=== PATIENT | female | born 1995 | race Caucasian/White ===

== ENCOUNTER 2019-02-23 02:40 | Inpatient (IN) ==
[2019-02-23] MEDS ORDERED: MAGNESIUM SULFATE / WTR 4 GM/100 ML BAG IV ONE (03:15)
[2019-02-23] MEDS ORDERED: LACTATED RINGER'S 1,000 ML IV SCH (03:15)
[2019-02-23] MEDS: LACTATED RINGER'S 1,000 ML IV PRN ×3 (03:20→18:45)
[2019-02-23 03:53] LABS: Hematocrit (blood only) 36.4 % (37-47); Hemoglobin 12.6 g/dL (12.0-16.0); Mean Corpuscular Hemoglobin 30.6 pg (25-34); Mean Corpuscular Volume 88.3 fL (80-100); Mean Platelet Volume 9.4 fL (7.4-10.4); Platelet Count 240 K/uL (130-400); RDW Coefficient of Variation 13.6 % (11.5-14.5); RDW Standard Deviation 43.9 fL (36.4-46.3); Red Blood Count 4.12 M/uL (4.2-5.4); White Blood Count 9.18 K/uL (4.8-10.8)
[2019-02-23 04:04] LABS: Mean Corpuscular Hgb Conc 34.6 g/dL (32-36)
[2019-02-23 04:11] LABS: Albumin Level 2.7 gm/dl (3.4-5.0); BUN Creatinine Ratio 15.4 (10-20); Calcium 9.4 mg/dl (8.5-10.1); Creatinine Clr Calc Pharmacy 151.7 ml/min; Est GFR (Non-African American) 129.4; Potassium 3.6 mmol/L (3.5-5.1)
[2019-02-23 04:14] LABS: Albumin Globulin Ratio 0.6 (0.9-2); Bilirubin,Total 0.2 mg/dl (0.2-1); Globulin 4.3 gm/dl (2.5-4.0)
--- NOTE | 2019-02-23 04:14 | History and Physical Report ---
DATE OF ADMISSION: 02/23/2019 CHIEF COMPLAINT: Ruptured membranes, intrauterine 38 weeks 4 days, elevated blood pressure. HISTORY OF PRESENT ILLNESS: The patient is a 23-year-old 1, para 0. has been well dated. Her due date is 03/07/2019. She has had elevated blood pressure since 35 weeks. It has been fairly stable in the office. She has been on Procardia at night. She ruptured her membranes at 2:10 a.m. the day of admission. Came into the hospital and was running blood pressures of 170/112 with 2+ protein. ALLERGIES: No known drug allergies. PAST SURGICAL HISTORY: No previous surgery. PAST MEDICAL HISTORY: No history of rheumatic fever, heart disease, or heart murmur. SOCIAL HISTORY: No smoking. No excessive alcohol intake. Works at [employer]. FAMILY HISTORY: Mom is 54 in good health, father 52 in good health, 2 brothers and 2 sisters in good health. REVIEW OF SYSTEMS: She has occasional headaches. PHYSICAL EXAMINATION: GENERAL: Well-developed, well-nourished, 23-year-old white female, alert, oriented x3 and cooperative, in no acute distress. EYES: Conjunctivae are pink. Sclerae white, no evidence of jaundice. EARS: Had a normal light reflex. HEART: Had regular rhythm. S1, S2 are normal. LUNGS: Clear to auscultation and percussion. ABDOMEN: Consistent with 38 weeks' gestational fetus. No CVA tenderness. PELVIC: Vertex presentation, posterior, 80% effaced, 2 cm, prem rupture of membranes. MUSCULOSKELETAL: No calf tenderness. IMPRESSIONS OF THIS CASE: Intrauterine 38 weeks 4 days, prem rupture of membranes, toxemia of .
[2019-02-23] MEDS: MAGNESIUM SULFATE / WTR 40 GM/1,000 ML BAG IV SCH ×2 (04:23→19:01)
[2019-02-23] MEDS ORDERED: ONDANSETRON INJ 2 MG/ML 2 ML VIAL IV PRN ×2 (06:17→11:41)
[2019-02-23] MEDS ORDERED: BUTORPHANOL TARTRATE 1 MG/ML VIAL IV PRN ×2 (06:26→08:44)
[2019-02-23] MEDS ORDERED: BUTORPHANOL TARTRATE 1 MG/ML VIAL ONE (06:37)
[2019-02-23] MEDS ORDERED: OXYTOCIN 30 UNITS/500 ML BAG IV PRN ×2 (08:09→22:36)
--- NOTE | 2019-02-23 08:09 | Obstetrical Progress Note ---
Date of Service February 23, 2019 Subjective doing well with labor pain now with Stadol Physical Exam Constitutional: WD/WN, vitals as above comfortable Genitourinary: OB Exam Abdomen: + vertex Manual OB Exam: + cervical dilation 2 cm, + cervical effacement 80%, + station high and + amniotic fluid clear OB Exam Monitor Tracing: + external FHT monitor used and + external uterine monitor used Will start oxytocin to augment contractions EFW 8 lbs. Results & Data Vital Signs (Past 12 Hours) Vital Signs Temp Pulse Resp BP Pulse Ox 02/23/19 08:02 101 H 97 02/23/19 07:57 122 H 99 02/23/19 07:55 110 H 142/86 H 02/23/19 07:52 117 H 100 02/23/19 07:47 99 H 98 02/23/19 07:42 101 H 97 02/23/19 07:37 109 H 98 02/23/19 07:34 105 H 140/85 02/23/19 07:32 111 H 98 02/23/19 07:27 106 H 96 02/23/19 07:22 113 H 97 02/23/19 07:17 117 H 98 02/23/19 07:14 104 H 142/89 H 02/23/19 07:12 112 H 97 02/23/19 07:07 119 H 97 02/23/19 07:03 36.7 C 18 98 02/23/19 07:02 111 H 99 02/23/19 07:00 18 02/23/19 06:57 116 H 98 02/23/19 06:54 111 H 162/106 H 02/23/19 06:52 120 H 98 02/23/19 06:47 108 H 98 02/23/19 06:42 109 H 99 02/23/19 06:37 107 H 99 02/23/19 06:33 104 H 158/100 H 02/23/19 06:32 110 H 99 02/23/19 06:27 139 H 100 02/23/19 06:22 103 H 98 02/23/19 06:17 102 H 99 02/23/19 06:12 100 H 100 02/23/19 06:07 120 H 99 02/23/19 06:04 98 H 94 02/23/19 06:03 87 156/87 H 02/23/19 06:02 91 H 97 02/23/19 06:00 18 02/23/19 05:54 98 H 149/89 H 02/23/19 05:50 18 02/23/19 05:46 107 H 155/92 H 02/23/19 05:30 36.7 C 02/23/19 05:24 104 H 151/99 H 02/23/19 05:14 101 H 159/105 H 02/23/19 05:04 100 H 151/88 H 02/23/19 04:54 103 H 150/89 H 02/23/19 04:50 18 02/23/19 04:44 112 H 189/92 H 02/23/19 04:35 18 02/23/19 04:34 114 H 190/89 H 02/23/19 04:20 18 02/23/19 04:09 114 H 168/106 H 02/23/19 04:05 18 02/23/19 03:52 103 H 170/112 H 02/23/19 03:50 18 02/23/19 03:48 18 02/23/19 03:37 36.8 C 18 02/23/19 03:36 99 H 154/112 H 02/23/19 03:34 99 H 159/110 H 02/23/19 03:08 103 H 151/100 H 02/23/19 02:57 94 H 171/103 H 02/23/19 02:55 91 H 163/102 H 02/23/19 02:53 107 H 166/105 H 02/23/19 02:51 97 H 173/110 H 02/23/19 02:48 118 H 174/116 H
[2019-02-23] MEDS ORDERED: BUPIVACAINE 0.25% 30 ML VIAL ONE ×2 (10:11→20:29)
[2019-02-23] MEDS ORDERED: ePHEDrine sulfate 50 MG/ML AMP ONE (10:12)
[2019-02-23] MEDS ORDERED: fentaNYL citrate 100 MCG/2 ML VIAL ONE (10:12)
[2019-02-23] MEDS ORDERED: fentaNYL 2MCG/ML ROPIV 1.25MG/ML 100 ML BAG EPI ONE (10:13)
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
[2019-02-23] MEDS ORDERED: NALOXONE HCL 1 MG in SODIUM CHLORIDE 0.9% 1000ML 1,000 ML IV PRN (11:41)
[2019-02-23] MEDS ORDERED: NALBUPHINE HCL INJ 10 MG/ML AMP IV PRN (11:41)
[2019-02-23] MEDS ORDERED: DiphenhydrAMINE HCL 50 MG/ML VIAL IV PRN (11:41)
[2019-02-23] MEDS ORDERED: PROMETHAZINE HCL 6.25 MG in SODIUM CHLORIDE 0.9% 50 ML IV PRN (11:41)
[2019-02-23] MEDS ORDERED: NALOXONE HCL 0.4 MG/1 ML VIAL/CARP IV PRN (11:41)
[2019-02-23] MEDS ORDERED: ePHEDrine sulfate 50 MG/ML AMP IV PRN (11:41)
[2019-02-23] MEDS ORDERED: LABETALOL HCL IV 5 MG/ML 20ML IV ONE (17:13)
[2019-02-23] MEDS ORDERED: LABETALOL HCL IV 5 MG/ML 20ML IV STA ×2 (17:14→18:26)
[2019-02-23] MEDS: fentaNYL 2MCG/ML ROPIV 1.25MG/ML 100 ML BAG EPI PRN ×2 (18:35→19:17)
[2019-02-23] MEDS ORDERED: CALCIUM CARBONATE 500 MG CHEWABLE TAB PO PRN (18:58)
[2019-02-23] MEDS ORDERED: Nursing to Pharmacy Communication ONE (19:16)
--- NOTE | 2019-02-23 19:16 | Obstetrical Progress Note ---
Date of Service February 23, 2019 Physical Exam Constitutional: WD/WN, vitals as above comfortable Genitourinary: OB Exam Abdomen: + irregular contractions Manual OB Exam: + cervical dilation 6 cm and 7 cm, + cervical effacement 90%, + station -2 and + amniotic fluid OB Exam Monitor Tracing: + external FHT monitor used, + external uterine monitor used and + category I BP stable will continue with oxytocin Results & Data Vital Signs (Past 12 Hours) Vital Signs Temp Pulse Resp BP Pulse Ox 02/23/19 19:12 103 H 100 02/23/19 19:07 107 H 99 02/23/19 19:06 104 H 153/96 H 02/23/19 19:02 107 H 98 02/23/19 19:01 107 H 150/101 H 02/23/19 19:00 20 02/23/19 18:57 107 H 98 02/23/19 18:56 105 H 141/84 H 02/23/19 18:52 109 H 98 02/23/19 18:51 110 H 144/87 H 02/23/19 18:47 107 H 98 02/23/19 18:46 109 H 148/89 H 02/23/19 18:42 108 H 98 02/23/19 18:41 104 H 144/92 H 02/23/19 18:37 112 H 147/98 H 99 02/23/19 18:32 108 H 98 02/23/19 18:31 107 H 157/96 H 02/23/19 18:27 110 H 149/96 H 98 02/23/19 18:22 107 H 100 02/23/19 18:21 108 H 141/103 H 02/23/19 18:17 108 H 99 02/23/19 18:16 105 H 152/96 H 02/23/19 18:12 108 H 99 02/23/19 18:11 106 H 150/97 H 02/23/19 18:07 101 H 98 02/23/19 18:06 100 H 143/92 H 02/23/19 18:02 100 H 139/91 98 02/23/19 17:57 102 H 98 02/23/19 17:56 106 H 157/98 H 02/23/19 17:52 104 H 99 02/23/19 17:51 102 H 148/91 H 02/23/19 17:47 105 H 98 02/23/19 17:46 102 H 152/96 H 02/23/19 17:43 105 H 159/100 H 02/23/19 17:42 103 H 98 02/23/19 17:39 103 H 152/97 H 02/23/19 17:37 104 H 97 02/23/19 17:36 101 H 143/92 H 02/23/19 17:32 102 H 149/94 H 98 02/23/19 17:27 110 H 98 02/23/19 17:22 118 H 98 02/23/19 17:18 115 H 147/97 H 02/23/19 17:17 113 H 99 02/23/19 17:12 116 H 99 02/23/19 17:07 116 H 98 02/23/19 17:03 114 H 146/100 H 02/23/19 17:02 117 H 98 02/23/19 16:57 115 H 99 02/23/19 16:52 116 H 99 02/23/19 16:47 116 H 175/111 H 98 02/23/19 16:42 118 H 99 02/23/19 16:37 108 H 98 02/23/19 16:33 110 H 171/103 H 02/23/19 16:32 105 H 100 02/23/19 16:27 106 H 100 02/23/19 16:22 111 H 99 02/23/19 16:18 112 H 181/101 H 02/23/19 16:17 110 H 99 02/23/19 16:12 112 H 98 02/23/19 16:07 112 H 97 02/23/19 16:02 117 H 176/98 H 97 02/23/19 15:57 111 H 98 02/23/19 15:52 110 H 97 02/23/19 15:48 37.1 C 113 H 20 186/107 H 02/23/19 15:47 113 H 98 02/23/19 15:42 115 H 98 02/23/19 15:37 106 H 98 02/23/19 15:33 109 H 186/98 H 02/23/19 15:32 111 H 96 02/23/19 15:27 107 H 98 02/23/19 15:22 105 H 98 02/23/19 15:17 105 H 139/79 98 02/23/19 15:12 104 H 97 09/26/19 15:08 102 H 93 02/23/19 15:07 105 H 98 02/23/19 15:02 113 H 97 02/23/19 15:00 36.4 C L 20 02/23/19 14:57 112 H 97 02/23/19 14:52 113 H 99 02/23/19 14:48 109 H 137/72 02/23/19 14:47 107 H 98 02/23/19 14:42 109 H 95 02/23/19 14:37 101 H 97 02/23/19 14:33 100 H 130/74 02/23/19 14:32 101 H 98 02/23/19 14:27 101 H 98 02/23/19 14:22 107 H 98 02/23/19 14:17 106 H 139/72 98 02/23/19 14:12 110 H 98 02/23/19 14:07 104 H 98 02/23/19 14:05 36.8 C 18 02/23/19 14:04 102 H 139/95 02/23/19 14:02 116 H 100 02/23/19 13:57 107 H 100 02/23/19 13:52 106 H 100 02/23/19 13:47 104 H 162/94 H 100 02/23/19 13:42 102 H 100 02/23/19 13:37 99 H 100 02/23/19 13:32 103 H 157/93 H 100 02/23/19 13:27 98 H 100 02/23/19 13:22 100 H 100 02/23/19 13:17 101 H 164/97 H 100 02/23/19 13:12 103 H 100 02/23/19 13:07 104 H 100 02/23/19 13:05 102 H 157/84 H 02/23/19 13:02 106 H 100 02/23/19 12:57 106 H 100 02/23/19 12:52 104 H 100 02/23/19 12:47 110 H 139/99 100 02/23/19 12:42 100 H 100 02/23/19 12:37 36.6 C 108 H 20 100 02/23/19 12:32 120 H 99 02/23/19 12:27 97 H 99 02/23/19 12:23 93 H 126/67 02/23/19 12:22 93 H 98 02/23/19 12:17 99 H 98 02/23/19 12:14 95 H 130/72 02/23/19 12:12 94 H 100 02/23/19 12:07 97 H 100 02/23/19 12:03 96 H 134/70 02/23/19 12:02 97 H 100 02/23/19 11:57 95 H 99 02/23/19 11:54 90 139/79 02/23/19 11:52 92 H 100 02/23/19 11:47 92 H 99 02/23/19 11:42 95 H 138/69 99 02/23/19 11:37 93 H 99 02/23/19 11:32 95 H 135/66 99 02/23/19 11:27 95 H 100 02/23/19 11:22 36.5 C 97 H 18 124/62 99 02/23/19 11:20 95 H 124/65 02/23/19 11:18 93 H 124/66 02/23/19 11:17 97 H 99 02/23/19 11:16 100 H 135/75 02/23/19 11:14 97 H 141/83 H 02/23/19 11:12 96 H 142/83 H 100 02/23/19 11:10 108 H 129/59 L 02/23/19 11:08 95 H 136/79 02/23/19 11:07 101 H 99 02/23/19 11:06 93 H 104/55 L 02/23/19 11:05 90 110/54 L 83 L 02/23/19 11:02 104 H 99 02/23/19 10:57 109 H 99 02/23/19 10:54 106 H 156/96 H 02/23/19 10:52 109 H 97 02/23/19 10:47 109 H 98 02/23/19 10:42 108 H 98 02/23/19 10:37 114 H 99 02/23/19 10:34 113 H 150/104 H 02/23/19 10:32 109 H 97 02/23/19 10:27 107 H 98 02/23/19 10:22 111 H 99 02/23/19 10:17 114 H 98 02/23/19 10:14 118 H 179/100 H 02/23/19 10:12 110 H 97 02/23/19 10:07 109 H 99 02/23/19 10:02 107 H 19 98 02/23/19 09:57 107 H 98 02/23/19 09:54 100 H 147/80 H 02/23/19 09:52 106 H 98 02/23/19 09:47 114 H 99 02/23/19 09:42 108 H 99 02/23/19 09:37 101 H 98 02/23/19 09:34 106 H 168/85 H 02/23/19 09:32 112 H 99 02/23/19 09:27 105 H 97 02/23/19 09:22 108 H 99 02/23/19 09:17 110 H 97 02/23/19 09:16 112 H 189/92 H 02/23/19 09:12 110 H 98 02/23/19 09:07 116 H 98 02/23/19 09:02 118 H 99 02/23/19 09:00 36.3 C L 20 02/23/19 08:57 138 H 99 02/23/19 08:54 103 H 164/98 H 02/23/19 08:52 111 H 100 02/23/19 08:47 109 H 99 02/23/19 08:42 105 H 99 02/23/19 08:37 103 H 100 02/23/19 08:34 101 H 163/109 H 02/23/19 08:32 103 H 99 02/23/19 08:27 106 H 99 02/23/19 08:22 100 H 100 02/23/19 08:17 106 H 97 02/23/19 08:14 106 H 141/96 H 02/23/19 08:12 105 H 99 02/23/19 08:07 105 H 99 02/23/19 08:05 20 02/23/19 08:02 101 H 97 02/23/19 07:57 122 H 99 02/23/19 07:55 110 H 142/86 H 02/23/19 07:52 117 H 100 02/23/19 07:47 99 H 98 02/23/19 07:42 101 H 97 02/23/19 07:37 109 H 98 02/23/19 07:34 105 H 140/85 02/23/19 07:32 111 H 98 02/23/19 07:27 106 H 96 02/23/19 07:22 113 H 97 02/23/19 07:17 117 H 98
--- NOTE | 2019-02-23 21:33 | Obstetrical Progress Note ---
Date of Service February 23, 2019 Physical Exam Genitourinary: Manual OB Exam: + cervical dilation 9 cm, + cervical effacement 100% and + station -1 OB Exam Monitor Tracing: + external FHT monitor used, + category I and + normal FHT variability Results & Data Vital Signs (Past 12 Hours) Vital Signs Temp Pulse Resp BP Pulse Ox 02/23/19 21:27 109 H 98 02/23/19 21:22 113 H 99 02/23/19 21:17 110 H 98 02/23/19 21:16 107 H 155/95 H 02/23/19 21:12 113 H 156/95 H 97 02/23/19 21:07 112 H 97 02/23/19 21:06 112 H 145/89 H 02/23/19 21:02 115 H 98 02/23/19 21:01 111 H 150/93 H 02/23/19 21:00 36.7 C 20 02/23/19 20:59 20 02/23/19 20:57 114 H 97 02/23/19 20:56 111 H 143/87 H 02/23/19 20:52 105 H 97 02/23/19 20:51 108 H 145/92 H 02/23/19 20:47 110 H 145/96 H 96 02/23/19 20:42 117 H 98 02/23/19 20:41 105 H 144/90 H 02/23/19 20:39 114 H 160/94 H 02/23/19 20:37 110 H 152/101 H 97 02/23/19 20:35 115 H 151/101 H 02/23/19 20:33 113 H 158/103 H 02/23/19 20:32 112 H 97 02/23/19 20:30 20 02/23/19 20:27 111 H 97 02/23/19 20:22 112 H 156/99 H 98 02/23/19 20:17 109 H 100 02/23/19 20:12 110 H 99 02/23/19 20:07 112 H 99 02/23/19 20:06 114 H 148/103 H 02/23/19 20:02 128 H 98 02/23/19 20:00 20 02/23/19 19:57 110 H 98 02/23/19 19:52 104 H 136/81 96 02/23/19 19:47 107 H 98 02/23/19 19:42 102 H 97 02/23/19 19:37 111 H 99 02/23/19 19:36 106 H 135/76 02/23/19 19:32 100 H 98 02/23/19 19:30 20 02/23/19 19:27 101 H 98 02/23/19 19:22 98 H 98 02/23/19 19:21 100 H 123/75 02/23/19 19:17 101 H 98 02/23/19 19:12 103 H 100 02/23/19 19:07 107 H 99 02/23/19 19:06 104 H 153/96 H 02/23/19 19:02 107 H 98 02/23/19 19:01 107 H 150/101 H 02/23/19 19:00 20 02/23/19 18:57 107 H 98 02/23/19 18:56 105 H 141/84 H 02/23/19 18:52 109 H 98 02/23/19 18:51 110 H 144/87 H 02/23/19 18:47 107 H 98 02/23/19 18:46 109 H 148/89 H 02/23/19 18:42 108 H 98 02/23/19 18:41 104 H 144/92 H 02/23/19 18:37 112 H 147/98 H 99 02/23/19 18:32 108 H 98 02/23/19 18:31 107 H 157/96 H 02/23/19 18:27 110 H 149/96 H 98 02/23/19 18:22 107 H 100 02/23/19 18:21 108 H 141/103 H 02/23/19 18:17 108 H 99 02/23/19 18:16 105 H 152/96 H 02/23/19 18:12 108 H 99 02/23/19 18:11 106 H 150/97 H 02/23/19 18:07 101 H 98 02/23/19 18:06 100 H 143/92 H 02/23/19 18:02 100 H 139/91 98 02/23/19 17:57 102 H 98 02/23/19 17:56 106 H 157/98 H 02/23/19 17:52 104 H 99 02/23/19 17:51 102 H 148/91 H 02/23/19 17:47 105 H 98 02/23/19 17:46 102 H 152/96 H 02/23/19 17:43 105 H 159/100 H 02/23/19 17:42 103 H 98 02/23/19 17:39 103 H 152/97 H 02/23/19 17:37 104 H 97 02/23/19 17:36 101 H 143/92 H 02/23/19 17:32 102 H 149/94 H 98 02/23/19 17:27 110 H 98 02/23/19 17:22 118 H 98 02/23/19 17:18 115 H 147/97 H 02/23/19 17:17 113 H 99 02/23/19 17:12 116 H 99 02/23/19 17:07 116 H 98 02/23/19 17:03 114 H 146/100 H 02/23/19 17:02 117 H 98 02/23/19 16:57 115 H 99 02/23/19 16:52 116 H 99 02/23/19 16:47 116 H 175/111 H 98 02/23/19 16:42 118 H 99 02/23/19 16:37 108 H 98 02/23/19 16:33 110 H 171/103 H 02/23/19 16:32 105 H 100 02/23/19 16:27 106 H 100 02/23/19 16:22 111 H 99 02/23/19 16:18 112 H 181/101 H 02/23/19 16:17 110 H 99 02/23/19 16:12 112 H 98 02/23/19 16:07 112 H 97 02/23/19 16:02 117 H 176/98 H 97 02/23/19 15:57 111 H 98 02/23/19 15:52 110 H 97 02/23/19 15:48 37.1 C 113 H 20 186/107 H 02/23/19 15:47 113 H 98 02/23/19 15:42 115 H 98 02/23/19 15:37 106 H 98 02/23/19 15:33 109 H 186/98 H 02/23/19 15:32 111 H 96 02/23/19 15:27 107 H 98 02/23/19 15:22 105 H 98 02/23/19 15:17 105 H 139/79 98 02/23/19 15:12 104 H 97 02/23/19 15:08 102 H 93 02/23/19 15:07 105 H 98 02/23/19 15:02 113 H 97 02/23/19 15:00 36.4 C L 20 02/23/19 14:57 112 H 97 02/23/19 14:52 113 H 99 02/23/19 14:48 109 H 137/72 02/23/19 14:47 107 H 98 02/23/19 14:42 109 H 95 02/23/19 14:37 101 H 97 02/23/19 14:33 100 H 130/74 02/23/19 14:32 101 H 98 02/23/19 14:27 101 H 98 02/23/19 14:22 107 H 98 02/23/19 14:17 106 H 139/72 98 02/23/19 14:12 110 H 98 02/23/19 14:07 104 H 98 02/23/19 14:05 36.8 C 18 02/23/19 14:04 102 H 139/95 02/23/19 14:02 116 H 100 02/23/19 13:57 107 H 100 02/23/19 13:52 106 H 100 02/23/19 13:47 104 H 162/94 H 100 02/23/19 13:42 102 H 100 02/23/19 13:37 99 H 100 02/23/19 13:32 103 H 157/93 H 100 02/23/19 13:27 98 H 100 02/23/19 13:22 100 H 100 02/23/19 13:17 101 H 164/97 H 100 02/23/19 13:12 103 H 100 02/23/19 13:07 104 H 100 02/23/19 13:05 102 H 157/84 H 02/23/19 13:02 106 H 100 02/23/19 12:57 106 H 100 02/23/19 12:52 104 H 100 02/23/19 12:47 110 H 139/99 100 02/23/19 12:42 100 H 100 02/23/19 12:37 36.6 C 108 H 20 100 02/23/19 12:32 120 H 99 02/23/19 12:27 97 H 99 02/23/19 12:23 93 H 126/67 02/23/19 12:22 93 H 98 09/26/19 12:17 99 H 98 02/23/19 12:14 95 H 130/72 02/23/19 12:12 94 H 100 02/23/19 12:07 97 H 100 02/23/19 12:03 96 H 134/70 02/23/19 12:02 97 H 100 02/23/19 11:57 95 H 99 02/23/19 11:54 90 139/79 02/23/19 11:52 92 H 100 02/23/19 11:47 92 H 99 02/23/19 11:42 95 H 138/69 99 02/23/19 11:37 93 H 99 02/23/19 11:32 95 H 135/66 99 02/23/19 11:27 95 H 100 02/23/19 11:22 36.5 C 97 H 18 124/62 99 02/23/19 11:20 95 H 124/65 02/23/19 11:18 93 H 124/66 02/23/19 11:17 97 H 99 02/23/19 11:16 100 H 135/75 02/23/19 11:14 97 H 141/83 H 02/23/19 11:12 96 H 142/83 H 100 02/23/19 11:10 108 H 129/59 L 02/23/19 11:08 95 H 136/79 02/23/19 11:07 101 H 99 02/23/19 11:06 93 H 104/55 L 02/23/19 11:05 90 110/54 L 83 L 02/23/19 11:02 104 H 99 02/23/19 10:57 109 H 99 02/23/19 10:54 106 H 156/96 H 02/23/19 10:52 109 H 97 02/23/19 10:47 109 H 98 02/23/19 10:42 108 H 98 02/23/19 10:37 114 H 99 02/23/19 10:34 113 H 150/104 H 02/23/19 10:32 109 H 97 02/23/19 10:27 107 H 98 02/23/19 10:22 111 H 99 02/23/19 10:17 114 H 98 02/23/19 10:14 118 H 179/100 H 02/23/19 10:12 110 H 97 02/23/19 10:07 109 H 99 02/23/19 10:02 107 H 19 98 02/23/19 09:57 107 H 98 02/23/19 09:54 100 H 147/80 H 02/23/19 09:52 106 H 98 02/23/19 09:47 114 H 99 02/23/19 09:42 108 H 99 02/23/19 09:37 101 H 98 02/23/19 09:34 106 H 168/85 H
[2019-02-23] MEDS ORDERED: bisacodyL 10 MG SUPP PR PRN (22:36)
[2019-02-23] MEDS ORDERED: BENZOCAINE 20% AER SPR 82.5 GM CAN EXT PRN (22:36)
[2019-02-23] MEDS ORDERED: HYDROCORTISONE ACETATE 25 MG SUPP PR PRN (22:36)
[2019-02-23] MEDS ORDERED: DIPHTHERIA/TETANUS/PERTUSSIS 0.5 ML SYR/VIAL IM ONE (22:36)
[2019-02-23] MEDS ORDERED: MEASLES, MUMPS & RUBELLA VIRUS VIAL SQ ONE (22:36)
[2019-02-23] MEDS ORDERED: IBUPROFEN 600 MG TAB PO PRN (22:36)
[2019-02-23] MEDS ORDERED: ACETAMINOPHEN 325 MG TAB PO PRN (22:36)
[2019-02-23] MEDS ORDERED: SUPERCREAM 0.870% 15 GM JAR EXT PRN (22:36)
--- NOTE | 2019-02-23 22:37 | Delivery Summary ---
Vaginal Delivery Summary Date of Service February 23, 2019 Vaginal Delivery Summary Delivery Note live male over intact perineum with delayed cord clamping. Nuchal cord x1 reduced at delivery with true knot in cord as well. Apgars 7/8 weight pending. No tears. EBL 200 ml. Final sponge and instrument count are correct. Mom and baby stable
[2019-02-24] MEDS: MAGNESIUM SULFATE / WTR 40 GM/1,000 ML BAG IV SCH (00:48)
[2019-02-24 07:41] LABS: Hematocrit (blood only) 30.5 % (37-47); Hemoglobin 10.4 g/dL (12.0-16.0); Mean Corpuscular Hgb Conc 34.1 g/dL (32-36); Mean Corpuscular Volume 87.9 fL (80-100); Mean Platelet Volume 9.2 fL (7.4-10.4); Platelet Count 230 K/uL (130-400); RDW Coefficient of Variation 14.1 % (11.5-14.5); Red Blood Count 3.47 M/uL (4.2-5.4); White Blood Count 12.57 K/uL (4.8-10.8)
--- NOTE | 2019-02-24 08:05 | Obstetrical Progress Note ---
Date of Service February 24, 2019 Subjective Patient is seen and examined. She feels well, no complaints. Likes to be off magnesium and take shower Ambulating to BR without dizziness Voiding without difficulty Tolerating regular diet with out N&V Bleeding is minimal No fever/ chills/ CP/ SOB/ N&V/ Leg pain Breast feeding without problems Vital Signs Temp Pulse Resp BP Pulse Ox 02/24/19 07:57 110 H 98 02/24/19 07:52 113 H 97 02/24/19 07:47 110 H 98 02/24/19 07:42 114 H 97 02/24/19 07:37 112 H 99 02/24/19 07:32 110 H 99 02/24/19 07:30 108 H 135/76 02/24/19 07:27 112 H 98 02/24/19 07:22 118 H 98 02/24/19 07:17 109 H 99 02/24/19 07:12 113 H 99 02/24/19 07:07 119 H 100 02/24/19 06:55 105 H 96 02/24/19 06:50 108 H 97 02/24/19 06:45 105 H 96 02/24/19 06:40 108 H 96 02/24/19 06:35 109 H 95 02/24/19 06:30 107 H 20 96 02/24/19 06:29 108 H 124/65 02/24/19 06:25 109 H 96 02/24/19 06:20 113 H 96 02/24/19 06:15 124 H 97 02/24/19 06:10 110 H 98 02/24/19 06:05 115 H 98 02/24/19 06:00 116 H 97 02/24/19 05:55 110 H 98 02/24/19 05:50 123 H 99 02/24/19 05:45 107 H 98 02/24/19 05:40 111 H 97 02/24/19 05:35 111 H 98 02/24/19 05:30 115 H 18 98 02/24/19 05:29 111 H 124/75 02/24/19 05:25 111 H 98 02/24/19 05:20 110 H 98 02/24/19 05:15 114 H 97 02/24/19 05:10 114 H 98 02/24/19 05:05 113 H 98 02/24/19 05:00 117 H 98 09/27/19 04:55 116 H 99 02/24/19 04:50 118 H 98 02/24/19 04:45 121 H 97 02/24/19 04:40 129 H 98 02/24/19 04:34 115 H 96 02/24/19 04:30 36.7 C 18 02/24/19 04:29 116 H 132/76 95 02/24/19 04:24 114 H 95 02/24/19 04:19 115 H 96 02/24/19 04:14 113 H 96 02/24/19 04:09 111 H 96 02/24/19 04:04 113 H 96 02/24/19 03:59 114 H 97 02/24/19 03:54 114 H 96 02/24/19 03:49 111 H 96 02/24/19 03:44 111 H 96 02/24/19 03:39 112 H 96 02/24/19 03:34 115 H 96 02/24/19 03:30 20 02/24/19 03:29 119 H 140/80 97 02/24/19 03:24 117 H 96 02/24/19 03:19 121 H 96 02/24/19 03:14 119 H 96 02/24/19 03:09 124 H 97 02/24/19 03:04 123 H 96 02/24/19 02:59 123 H 96 02/24/19 02:54 122 H 97 02/24/19 02:49 116 H 96 02/24/19 02:44 118 H 96 02/24/19 02:39 123 H 97 02/24/19 02:34 119 H 96 02/24/19 02:29 118 H 127/72 96 02/24/19 02:25 18 02/24/19 02:24 118 H 96 02/24/19 02:19 128 H 97 02/24/19 02:14 123 H 97 02/24/19 02:09 134 H 97 02/24/19 02:04 127 H 96 02/24/19 01:59 118 H 94 02/24/19 01:54 123 H 97 02/24/19 01:49 139 H 95 02/24/19 01:44 119 H 96 02/24/19 01:41 120 H 94 02/24/19 01:39 122 H 95 02/24/19 01:34 128 H 97 02/24/19 01:30 20 02/24/19 01:28 120 H 132/74 02/24/19 01:26 128 H 97 02/24/19 01:21 121 H 97 02/24/19 01:16 121 H 96 02/24/19 01:11 120 H 97 02/24/19 01:06 124 H 97 02/24/19 01:01 114 H 96 02/24/19 00:56 112 H 97 02/24/19 00:51 114 H 97 02/24/19 00:46 112 H 96 02/24/19 00:41 116 H 98 02/24/19 00:33 121 H 157/75 H 02/24/19 00:32 121 H 97 02/24/19 00:30 36.9 C 114 H 20 97 02/24/19 00:27 123 H 96 02/24/19 00:22 123 H 96 02/24/19 00:17 123 H 97 02/24/19 00:12 127 H 96 02/24/19 00:07 130 H 96 02/24/19 00:02 113 H 137/72 95 02/24/19 00:00 113 H 20 137/72 95 02/23/19 23:57 116 H 95 02/23/19 23:52 121 H 97 02/23/19 23:47 121 H 96 02/23/19 23:42 116 H 95 02/23/19 23:37 114 H 96 02/23/19 23:32 112 H 95 02/23/19 23:31 112 H 126/73 02/23/19 23:30 112 H 20 126/73 02/23/19 23:27 113 H 96 02/23/19 23:22 115 H 96 02/23/19 23:17 115 H 97 02/23/19 23:15 20 02/23/19 23:14 112 H 138/76 02/23/19 23:12 119 H 98 02/23/19 23:07 109 H 97 02/23/19 23:02 112 H 97 02/23/19 23:00 109 H 20 97 02/23/19 22:59 107 H 138/77 02/23/19 22:57 114 H 98 02/23/19 22:52 115 H 98 02/23/19 22:47 113 H 100 02/23/19 22:45 109 H 20 97 02/23/19 22:44 111 H 149/67 H 02/23/19 22:42 116 H 99 02/23/19 22:37 114 H 99 02/23/19 22:32 119 H 99 02/23/19 22:30 36.9 C 114 H 18 99 02/23/19 22:28 113 H 144/66 H 02/23/19 22:27 114 H 99 02/23/19 22:22 99 H 98 02/23/19 22:18 117 H 140/94 02/23/19 22:17 114 H 97 02/23/19 22:16 112 H 93 02/23/19 22:12 104 H 98 02/23/19 22:09 110 H 91 02/23/19 22:07 101 H 100 02/23/19 22:02 106 H 141/82 H 97 02/23/19 22:00 20 02/23/19 21:57 109 H 98 02/23/19 21:52 103 H 98 02/23/19 21:47 109 H 146/95 H 97 02/23/19 21:42 105 H 97 02/23/19 21:37 109 H 98 02/23/19 21:34 115 H 160/100 H 02/23/19 21:32 115 H 99 02/23/19 21:27 109 H 98 02/23/19 21:22 113 H 99 02/23/19 21:17 110 H 98 02/23/19 21:16 107 H 155/95 H 02/23/19 21:12 113 H 156/95 H 97 02/23/19 21:07 112 H 97 02/23/19 21:06 112 H 145/89 H 02/23/19 21:02 115 H 98 02/23/19 21:01 111 H 150/93 H 02/23/19 21:00 36.7 C 20 02/23/19 20:59 20 02/23/19 20:57 114 H 97 02/23/19 20:56 111 H 143/87 H 02/23/19 20:52 105 H 97 02/23/19 20:51 108 H 145/92 H 02/23/19 20:47 110 H 145/96 H 96 02/23/19 20:42 117 H 98 02/23/19 20:41 105 H 144/90 H 02/23/19 20:39 114 H 160/94 H 02/23/19 20:37 110 H 152/101 H 97 02/23/19 20:35 115 H 151/101 H 02/23/19 20:33 113 H 158/103 H 02/23/19 20:32 112 H 97 02/23/19 20:30 20 02/23/19 20:27 111 H 97 02/23/19 20:22 112 H 156/99 H 98 02/23/19 20:17 109 H 100 02/23/19 20:12 110 H 99 02/23/19 20:07 112 H 99 02/23/19 20:06 114 H 148/103 H Lab Results 02/23/19 02/23/19 02/23/19 Range/Units 03:42 03:42 19:37 WBC 9.18 (4.8-10.8) K/uL RBC 4.12 L (4.2-5.4) M/uL Hgb 12.6 (12.0-16.0) g/dL Hct 36.4 L (37-47) % MCV 88.3 (80-100) fL MCH 30.6 (25-34) pg MCHC 34.6 (32-36) g/dL RDW Std Deviation 43.9 (36.4-46.3) fL RDW Coeff of Abelardo 13.6 (11.5-14.5) % Plt Count 240 (130-400) K/uL MPV 9.4 (7.4-10.4) fL Sodium 137 (136-145) mmol/L Potassium 3.6 (3.5-5.1) mmol/L Chloride 105 (98-107) mmol/L Carbon Dioxide 23 (21-32) mmol/L Anion Gap 9.0 (3-11) BUN 9 (7-18) mg/dl Creatinine 0.60 (0.6-1.2) mg/dl Est Cr Clr Drug Dosing 151.7 ml/min Est GFR ( Amer) 150.0 Est GFR (Non-Af Amer) 129.4 BUN/Creatinine Ratio 15.4 (10-20) Glucose 97 (70-99) mg/dl Calcium 9.4 (8.5-10.1) mg/dl Magnesium (Sulf Ther) 5.5 (4.0-8.0) mg/dL Total Bilirubin 0.2 (0.2-1) mg/dl AST 14 L (15-37) U/L ALT 17 (12-78) U/L Alkaline Phosphatase 132 H (45-117) U/L Total Protein 7.0 (6.4-8.2) gm/dl Albumin 2.7 L (3.4-5.0) gm/dl Globulin 4.3 H (2.5-4.0) gm/dl Albumin/Globulin Ratio 0.6 L (0.9-2) 02/24/19 02/24/19 Range/Units 01:36 07:22 WBC 12.57 H (4.8-10.8) K/uL RBC 3.47 L (4.2-5.4) M/uL Hgb 10.4 L (12.0-16.0) g/dL Hct 30.5 L (37-47) % MCV 87.9 (80-100) fL MCH 30.0 (25-34) pg MCHC 34.1 (32-36) g/dL RDW Std Deviation 45.0 (36.4-46.3) fL RDW Coeff of Abelardo 14.1 (11.5-14.5) % Plt Count 230 (130-400) K/uL MPV 9.2 (7.4-10.4) fL Sodium (136-145) mmol/L Potassium (3.5-5.1) mmol/L Chloride (98-107) mmol/L Carbon Dioxide (21-32) mmol/L Anion Gap (3-11) BUN (7-18) mg/dl Creatinine (0.6-1.2) mg/dl Est Cr Clr Drug Dosing ml/min Est GFR ( Amer) Est GFR (Non-Af Amer) BUN/Creatinine Ratio (10-20) Glucose (70-99) mg/dl Calcium (8.5-10.1) mg/dl Magnesium (Sulf Ther) 5.2 (4.0-8.0) mg/dL Total Bilirubin (0.2-1) mg/dl AST (15-37) U/L ALT (12-78) U/L Alkaline Phosphatase (45-117) U/L Total Protein (6.4-8.2) gm/dl Albumin (3.4-5.0) gm/dl Globulin (2.5-4.0) gm/dl Albumin/Globulin Ratio (0.9-2) PE: General: Alert, orientedx3, NAD Abd: soft, NT, fundus firm, below Umbilicus Perineum intact, Lochia rubra minimal Ext; NT, 1+/1+ edema, DTR 1+/1+, no clonus AP: 23 yo s/p , preeclampsia with severe features, on magnesium sulfate since admission, Procardia, s/p IV Labetalol, normal labs, ppd# 1 VSS Afebrile doing well Continue routine care Decrease Magnesium dose and then d.c this afternoon if stable All questions were answered Results & Data Vital Signs (Past 12 Hours) Vital Signs Temp Pulse Resp BP Pulse Ox 02/24/19 07:57 110 H 98 02/24/19 07:52 113 H 97 02/24/19 07:47 110 H 98 02/24/19 07:42 114 H 97 02/24/19 07:37 112 H 99 02/24/19 07:32 110 H 99 02/24/19 07:30 108 H 135/76 02/24/19 07:27 112 H 98 02/24/19 07:22 118 H 98 02/24/19 07:17 109 H 99 02/24/19 07:12 113 H 99 02/24/19 07:07 119 H 100 02/24/19 06:55 105 H 96 02/24/19 06:50 108 H 97 02/24/19 06:45 105 H 96 02/24/19 06:40 108 H 96 02/24/19 06:35 109 H 95 02/24/19 06:30 107 H 20 96 02/24/19 06:29 108 H 124/65 02/24/19 06:25 109 H 96 02/24/19 06:20 113 H 96 02/24/19 06:15 124 H 97 02/24/19 06:10 110 H 98 02/24/19 06:05 115 H 98 02/24/19 06:00 116 H 97 02/24/19 05:55 110 H 98 02/24/19 05:50 123 H 99 09/27/19 05:45 107 H 98 02/24/19 05:40 111 H 97 02/24/19 05:35 111 H 98 02/24/19 05:30 115 H 18 98 02/24/19 05:29 111 H 124/75 02/24/19 05:25 111 H 98 02/24/19 05:20 110 H 98 02/24/19 05:15 114 H 97 02/24/19 05:10 114 H 98 02/24/19 05:05 113 H 98 02/24/19 05:00 117 H 98 02/24/19 04:55 116 H 99 02/24/19 04:50 118 H 98 02/24/19 04:45 121 H 97 02/24/19 04:40 129 H 98 02/24/19 04:34 115 H 96 02/24/19 04:30 36.7 C 18 02/24/19 04:29 116 H 132/76 95 02/24/19 04:24 114 H 95 02/24/19 04:19 115 H 96 02/24/19 04:14 113 H 96 02/24/19 04:09 111 H 96 02/24/19 04:04 113 H 96 02/24/19 03:59 114 H 97 02/24/19 03:54 114 H 96 02/24/19 03:49 111 H 96 02/24/19 03:44 111 H 96 02/24/19 03:39 112 H 96 02/24/19 03:34 115 H 96 02/24/19 03:30 20 02/24/19 03:29 119 H 140/80 97 02/24/19 03:24 117 H 96 02/24/19 03:19 121 H 96 02/24/19 03:14 119 H 96 02/24/19 03:09 124 H 97 02/24/19 03:04 123 H 96 02/24/19 02:59 123 H 96 02/24/19 02:54 122 H 97 02/24/19 02:49 116 H 96 02/24/19 02:44 118 H 96 02/24/19 02:39 123 H 97 02/24/19 02:34 119 H 96 02/24/19 02:29 118 H 127/72 96 02/24/19 02:25 18 02/24/19 02:24 118 H 96 02/24/19 02:19 128 H 97 02/24/19 02:14 123 H 97 02/24/19 02:09 134 H 97 02/24/19 02:04 127 H 96 02/24/19 01:59 118 H 94 02/24/19 01:54 123 H 97 02/24/19 01:49 139 H 95 02/24/19 01:44 119 H 96 02/24/19 01:41 120 H 94 02/24/19 01:39 122 H 95 02/24/19 01:34 128 H 97 02/24/19 01:30 20 02/24/19 01:28 120 H 132/74 02/24/19 01:26 128 H 97 02/24/19 01:21 121 H 97 02/24/19 01:16 121 H 96 02/24/19 01:11 120 H 97 02/24/19 01:06 124 H 97 02/24/19 01:01 114 H 96 02/24/19 00:56 112 H 97 02/24/19 00:51 114 H 97 02/24/19 00:46 112 H 96 02/24/19 00:41 116 H 98 02/24/19 00:33 121 H 157/75 H 02/24/19 00:32 121 H 97 02/24/19 00:30 36.9 C 114 H 20 97 02/24/19 00:27 123 H 96 02/24/19 00:22 123 H 96 02/24/19 00:17 123 H 97 02/24/19 00:12 127 H 96 02/24/19 00:07 130 H 96 02/24/19 00:02 113 H 137/72 95 02/24/19 00:00 113 H 20 137/72 95 02/23/19 23:57 116 H 95 02/23/19 23:52 121 H 97 02/23/19 23:47 121 H 96 02/23/19 23:42 116 H 95 02/23/19 23:37 114 H 96 02/23/19 23:32 112 H 95 02/23/19 23:31 112 H 126/73 02/23/19 23:30 112 H 20 126/73 02/23/19 23:27 113 H 96 02/23/19 23:22 115 H 96 02/23/19 23:17 115 H 97 02/23/19 23:15 20 02/23/19 23:14 112 H 138/76 02/23/19 23:12 119 H 98 02/23/19 23:07 109 H 97 02/23/19 23:02 112 H 97 02/23/19 23:00 109 H 20 97 02/23/19 22:59 107 H 138/77 02/23/19 22:57 114 H 98 02/23/19 22:52 115 H 98 02/23/19 22:47 113 H 100 02/23/19 22:45 109 H 20 97 02/23/19 22:44 111 H 149/67 H 02/23/19 22:42 116 H 99 02/23/19 22:37 114 H 99 02/23/19 22:32 119 H 99 02/23/19 22:30 36.9 C 114 H 18 99 02/23/19 22:28 113 H 144/66 H 02/23/19 22:27 114 H 99 02/23/19 22:22 99 H 98 02/23/19 22:18 117 H 140/94 02/23/19 22:17 114 H 97 02/23/19 22:16 112 H 93 02/23/19 22:12 104 H 98 02/23/19 22:09 110 H 91 02/23/19 22:07 101 H 100 02/23/19 22:02 106 H 141/82 H 97 02/23/19 22:00 20 02/23/19 21:57 109 H 98 02/23/19 21:52 103 H 98 02/23/19 21:47 109 H 146/95 H 97 02/23/19 21:42 105 H 97 02/23/19 21:37 109 H 98 02/23/19 21:34 115 H 160/100 H 02/23/19 21:32 115 H 99 02/23/19 21:27 109 H 98 02/23/19 21:22 113 H 99 02/23/19 21:17 110 H 98 02/23/19 21:16 107 H 155/95 H 02/23/19 21:12 113 H 156/95 H 97 02/23/19 21:07 112 H 97 02/23/19 21:06 112 H 145/89 H 02/23/19 21:02 115 H 98 02/23/19 21:01 111 H 150/93 H 02/23/19 21:00 36.7 C 20 02/23/19 20:59 20 02/23/19 20:57 114 H 97 02/23/19 20:56 111 H 143/87 H 02/23/19 20:52 105 H 97 02/23/19 20:51 108 H 145/92 H 02/23/19 20:47 110 H 145/96 H 96 02/23/19 20:42 117 H 98 02/23/19 20:41 105 H 144/90 H 02/23/19 20:39 114 H 160/94 H 02/23/19 20:37 110 H 152/101 H 97 02/23/19 20:35 115 H 151/101 H 02/23/19 20:33 113 H 158/103 H 02/23/19 20:32 112 H 97 02/23/19 20:30 20 02/23/19 20:27 111 H 97 02/23/19 20:22 112 H 156/99 H 98 02/23/19 20:17 109 H 100 02/23/19 20:12 110 H 99 02/23/19 20:07 112 H 99 02/23/19 20:06 114 H 148/103 H 02/23/19 20:02 128 H 98
[2019-02-24] MEDS: DOCUSATE SODIUM 100 MG CAP PO SCH ×2 (08:22→20:06)
[2019-02-24] MEDS: PRENATAL VITAMIN 1 TAB PO SCH (08:22)
[2019-02-24] MEDS: NIFEdipine EXTENDED REL 30 MG TABCR PO SCH (08:22)
--- NOTE | 2019-02-24 08:33 | Anesthesia Procedure Note ---
Date of Service February 24, 2019 Anesthesia Post Epidural Note Vital Signs Vital Signs: Temp Pulse Resp BP Pulse Ox 36.9 C 109 H 18 135/76 97 02/24/19 07:05 02/24/19 08:27 02/24/19 07:05 02/24/19 07:30 02/24/19 08:27 Pain Intensity Pelvic: Pain Intensity: 0 Notes Mental Status: alert / awake / arousable and participated in evaluation Nausea / Vomiting: adequately controlled Pain: adequately controlled Airway Patency, RR, SpO2: stable & adequate BP & HR: stable & adequate Hydration State: stable & adequate Neuraxial Anesthesia: was administered and sensory block is resolving Anesthetic Complications: no major complications apparent and Pt Satisfied with anesthetic care Epidural: Removed without complications and With tip intact
[2019-02-24 09:00] LABS: Albumin Globulin Ratio 0.6 (0.9-2); Albumin Level 2.3 gm/dl (3.4-5.0); BUN Creatinine Ratio 9.5 (10-20); Bilirubin,Total 0.3 mg/dl (0.2-1); Calcium 7.2 mg/dl (8.5-10.1); Est GFR (African American) 146.1; Globulin 3.6 gm/dl (2.5-4.0); Potassium 3.9 mmol/L (3.5-5.1); Total Protein 5.9 gm/dl (6.4-8.2)
[2019-02-24] MEDS ORDERED: PNV CMB FERROUS FUMARATE FA PO SCH (09:00)
--- NOTE | 2019-02-24 17:02 | Obstetrical Progress Note ---
Date of Service February 24, 2019 Subjective Patient is reevaluated She feels well, no complaints Likes Magnesium stopped VSS Afebrile Breast feeding her baby Plan to d/c Magnesium and continue with PO Procardia Continue to monitor Results & Data Vital Signs (Past 12 Hours) Vital Signs Temp Pulse Resp BP Pulse Ox 02/24/19 16:22 110 H 142/91 H 02/24/19 16:05 18 02/24/19 15:04 37.0 C 117 H 18 143/85 H 02/24/19 14:02 116 H 19 133/74 02/24/19 12:45 18 02/24/19 12:30 102 H 135/80 02/24/19 11:50 16 02/24/19 10:50 18 02/24/19 10:00 18 02/24/19 09:57 118 H 141/84 H 02/24/19 09:05 22 02/24/19 08:57 114 H 98 02/24/19 08:52 112 H 98 02/24/19 08:47 110 H 98 02/24/19 08:42 117 H 97 02/24/19 08:37 114 H 98 02/24/19 08:33 102 H 143/86 H 02/24/19 08:32 109 H 98 02/24/19 08:27 109 H 97 02/24/19 08:22 107 H 97 02/24/19 08:17 111 H 96 02/24/19 08:12 116 H 97 02/24/19 08:07 113 H 97 02/24/19 08:02 109 H 97 02/24/19 08:00 18 02/24/19 07:57 110 H 98 02/24/19 07:52 113 H 97 02/24/19 07:47 110 H 98 02/24/19 07:42 114 H 97 02/24/19 07:37 112 H 99 02/24/19 07:32 110 H 99 02/24/19 07:30 108 H 135/76 02/24/19 07:27 112 H 98 02/24/19 07:22 118 H 98 02/24/19 07:17 109 H 99 02/24/19 07:12 113 H 99 02/24/19 07:07 119 H 100 02/24/19 07:05 36.9 C 18 02/24/19 06:55 105 H 96 09/27/19 06:50 108 H 97 02/24/19 06:45 105 H 96 02/24/19 06:40 108 H 96 02/24/19 06:35 109 H 95 02/24/19 06:30 107 H 20 96 02/24/19 06:29 108 H 124/65 02/24/19 06:25 109 H 96 02/24/19 06:20 113 H 96 02/24/19 06:15 124 H 97 02/24/19 06:10 110 H 98 02/24/19 06:05 115 H 98 02/24/19 06:00 116 H 97 02/24/19 05:55 110 H 98 02/24/19 05:50 123 H 99 02/24/19 05:45 107 H 98 02/24/19 05:40 111 H 97 02/24/19 05:35 111 H 98 02/24/19 05:30 115 H 18 98 02/24/19 05:29 111 H 124/75 02/24/19 05:25 111 H 98 02/24/19 05:20 110 H 98 02/24/19 05:15 114 H 97 02/24/19 05:10 114 H 98 02/24/19 05:05 113 H 98
[2019-02-24] MEDS ORDERED: bisacodyL 5 MG TABEC PO SCH (20:00)
[2019-02-25 06:39] LABS: Hematocrit (blood only) 29.9 % (37-47)
[2019-02-25] MEDS: PRENATAL VITAMIN 1 TAB PO SCH (08:23)
[2019-02-25] MEDS: DOCUSATE SODIUM 100 MG CAP PO SCH (08:23)
[2019-02-25] MEDS: NIFEdipine EXTENDED REL 30 MG TABCR PO SCH (08:55)
[2019-02-25 09:24] LABS: Albumin Globulin Ratio 0.7 (0.9-2); Albumin Level 2.3 gm/dl (3.4-5.0); BUN Creatinine Ratio 13.1 (10-20); Bilirubin,Total 0.3 mg/dl (0.2-1); Calcium 8.5 mg/dl (8.5-10.1); Creatinine Clr Calc Pharmacy 131.9 ml/min; Est GFR (African American) 143.2; Est GFR (Non-African American) 123.6; Globulin 3.4 gm/dl (2.5-4.0); Total Protein 5.7 gm/dl (6.4-8.2)
--- NOTE | 2019-02-25 14:39 | Obstetrical Progress Note ---
Date of Service February 25, 2019 Assessment & Plan (1) Preeclampsia in period: pt is VD complicated by preeclampsia doing well off magnesium Stable BP on Procardia pt has rx at home pt wishes to go home d/c home with instructions Subjective Ambulation: ambulating normally Voiding: no voiding problems Passing Gas:: Yes Diet Tolerance:: regular diet Lochia:: Small Feeding Type:: breast feeding Review of Systems All systems reviewed & are unremarkable except as noted in HPI & below Physical Exam Constitutional WD/WN, vitals as above well developed and well nourished Eyes PERRL, conjunctivae normal, anicteric sclerae Neck trachea midline, no thyromegaly Respiratory normal respiratory effort, lungs clear to auscultation Auscultation: no crackles, no rales and no wheezes Cardiovascular RRR, no murmur, no edema Gastrointestinal (Abdomen) normal bowel sounds, soft, nontender, no hepatosplenomegaly Uterus is below umbilicus Musculoskeletal no cyanosis or clubbing, extremities motor strength 5/5 Skin no rashes, warm and dry Neurologic patellar DTR's 2+ bilat, sensation intact Psychiatric A+Ox3, euthymic affect Genitourinary normal external appearance Results & Data Vital Signs (Past 12 Hours) Vital Signs Temp Pulse Resp BP Pulse Ox 02/25/19 12:05 36.7 C 98 H 20 133/91 02/25/19 07:55 36.7 C 96 H 20 125/85 98
== END 2019-02-25 16:40 | disposition home or self-care (01) | DRG 807 ==
LOC: 4S1 02:40 → 4S2 02-24 18:41